=== PATIENT | female | born 1975 | race Caucasian/White ===

== ENCOUNTER 2016-10-29 18:03 | Emergency (ER) | payer OTHER ==
[~2016-10-29] VITALS: Ht 154.9 cm; Wt 89.8 kg
[~2016-10-29 18:03] MED LIST: 12 HOUR DECONG120 M1 PO; ADDERALL20 MG PO; AMOXICILLIN500 M1 PO; FLONASE16 G1 BOTH NARES; HYCODAN SYRUP480 ML PO; INDOCIN25 MG PO; LISINOPRIL20 MG PO; MOTRIN600 MG PO; NOHOMEMEDS; NORCO 7.5/321 TABLET PO; PREDNISONE20 MG PO; TENORMIN50 MG PO; VALIUM5 MG PO; VENTOLIN HFA18 GM IH
[2016-10-29 20:44] VITALS: BP 157/95
== END 2016-10-29 20:45 | disposition home or self-care (01) ==
LOC: EME 18:03
DX: M54.12 Radiculopathy, cervical region (principal); S46.912A Strain of unspecified muscle, fascia and tendon at shoulder and upper arm level, left arm, initial encounter; G89.29 Other chronic pain; Z87.828 Personal history of other (healed) physical injury and trauma; Z87.891 Personal history of nicotine dependence
CPT/HCPCS: 73030; 99281; 99283

== ENCOUNTER 2017-07-03 01:28 | Emergency (ER) | payer OTHER ==
[~2017-07-03] VITALS: Ht 154.9 cm; Wt 81.2 kg
[2017-07-03 01:49] LABS: HEMATOCRIT 35.5 % (36.0-46.0); HEMOGLOBIN 11.1 G/DL (11.9-15.5); MCH 25.1 PG (29.0-34.0); MCHC 31.3 G/DL (30.0-36.0); MCV 80.3 FL (83-99); PLATELET COUNT 262 K/uL (156-360); RBC DIS.WIDTH-SD 43.5 % (39-53); RED BLOOD COUNT 4.42 M/uL (3.80-5.20); WHITE BLOOD COUNT 10.2 K/uL (4.1-10.2)
[2017-07-03 01:58] LABS: ALBUMIN 3.8 g/dL (3.2-4.8); CHLORIDE 106 mEq/L (99-109); SODIUM 140 mEq/L (136-147)
[2017-07-03 02:00] LABS: GLUCOSE 83 mg/dL (70-99); TOTAL PROTEIN 6.6 g/dL (6.4-8.3)
[2017-07-03 02:02] LABS: TOTAL BILIRUBIN 0.2 mg/dL (0.0-1.0)
[2017-07-03 02:04] LABS: ALKALINE PHOSPHATASE 84 IU/L (3-129); CREATININE 0.8 mg/dL (0.6-1.3); GFR ESTIMATE (CALCULATED) > 59 mL/min/
[2017-07-03 02:05] LABS: UREA NITROGEN (BUN) 16 mg/dL (9-23)
[2017-07-03 02:06] LABS: AST (GOT) 13 IU/L (2-34)
[2017-07-03 02:07] LABS: ALT (GPT) 13 IU/L (3-49)
[2017-07-03 02:08] LABS: APPEARANCE SL.HAZY ((CLEAR)); BILIRUBIN NEGATIVE; BLOOD MODERATE; COLOR YELLOW ((YELLOW)); GLUCOSE (STRIP) NEGATIVE; KETONES NEGATIVE; LEUKOCYTES LARGE; NITRITE NEGATIVE; PROTEIN (STRIP) 100; SPECIFIC GRAVITY 1.016 (1.000-1.030); UROBILINOGEN 0.2 MG/DL (0.2-1.0)
[2017-07-03 02:13] LABS: QUANTITATIVE HCG < 4.0 MIU/ML
[2017-07-03 02:17] LABS: BACTERIA RARE /HPF; EPITHELIAL CELLS 1+ /HPF; MUCUS TRACE /LPF; RED BLOOD CELLS 20-30 /HPF (0-5); UCUL ADDED? YES; WHITE BLOOD CELLS TNTC /HPF (0-5)
[2017-07-03] MEDS ORDERED: ZOFRAN4 MG PO (03:25)
[2017-07-03] MEDS ORDERED: FLAGYL500 MG PO (03:25)
[2017-07-03] MEDS ORDERED: BACTRIM,SEPT1 TABLET PO (03:25)
[2017-07-03 03:44] VITALS: BP 140/76
== END 2017-07-03 03:46 | disposition home or self-care (01) ==
LOC: EME 01:28
DX: N30.91 Cystitis, unspecified with hematuria (principal); D64.9 Anemia, unspecified; Z87.440 Personal history of urinary (tract) infections; I10 Essential (primary) hypertension; Z87.891 Personal history of nicotine dependence
CPT/HCPCS: 80053; 81003; 84702; 85027; 87077; 87086; 87186; 99281; 99284

== ENCOUNTER 2017-10-12 10:04 | Emergency (ER) | payer OTHER ==
[~2017-10-12] VITALS: Ht 154.9 cm; Wt 81.7 kg
[~2017-10-12 10:04] MED LIST changes: +BACTRIM,SEPT1 TABLET PO; +FLAGYL500 MG PO; +ZOFRAN4 MG PO
[2017-10-12 11:42] LABS: APPEARANCE CLEAR ((CLEAR)); BILIRUBIN NEGATIVE; BLOOD MODERATE; COLOR YELLOW ((YELLOW)); GLUCOSE (STRIP) NEGATIVE; KETONES NEGATIVE; LEUKOCYTES SMALL; NITRITE NEGATIVE; PROTEIN (STRIP) 30; UROBILINOGEN 0.2 MG/DL (0.2-1.0)
[2017-10-12 11:48] LABS: BACTERIA NONE SEEN /HPF; EPITHELIAL CELLS 1+ /HPF; MUCUS TRACE /LPF
[2017-10-12 12:11] LABS: HEMATOCRIT 38.5 % (36.0-46.0); HEMOGLOBIN 12.1 G/DL (11.9-15.5); MCH 24.9 PG (29.0-34.0); MCHC 31.4 G/DL (30.0-36.0); MCV 79.2 FL (83-99); PLATELET COUNT 268 K/uL (156-360); RBC DIS.WIDTH-CV 14.3 % (11.8-14.6); RBC DIS.WIDTH-SD 40.6 % (39-53); RED BLOOD COUNT 4.86 M/uL (3.80-5.20); WHITE BLOOD COUNT 7.6 K/uL (4.1-10.2)
[2017-10-12 12:31] LABS: CHLORIDE 105 mEq/L (99-109); SODIUM 140 mEq/L (136-147)
[2017-10-12 12:33] LABS: GLUCOSE 90 mg/dL (70-99)
[2017-10-12 12:37] LABS: CREATININE 0.6 mg/dL (0.6-1.3); GFR ESTIMATE (CALCULATED) > 59 mL/min/
[2017-10-12 12:38] LABS: UREA NITROGEN (BUN) 10 mg/dL (9-23)
[2017-10-12 12:48] LABS: QUANTITATIVE HCG < 4.0 MIU/ML
[2017-10-12] MEDS ORDERED: ZOFRAN ODT4 MG PO (14:01)
[2017-10-12] MEDS ORDERED: NORCO 5/3251 TABLET PO (14:01)
[2017-10-12] MEDS ORDERED: FLOMAX0.4 MG PO (14:01)
[2017-10-12 14:15] VITALS: BP 178/86
== END 2017-10-12 14:15 | disposition home or self-care (01) ==
LOC: EME 10:04
PROVIDERS: Nurse Practitioner Family
DX: N20.0 Calculus of kidney (principal); N39.0 Urinary tract infection, site not specified; I10 Essential (primary) hypertension; F41.9 Anxiety disorder, unspecified; Z87.442 Personal history of urinary calculi; Z87.440 Personal history of urinary (tract) infections; Z87.891 Personal history of nicotine dependence
CPT/HCPCS: 74176; 80048; 81003; 84702; 85027; 87086; 99281; 99284